=== PATIENT | male | born 1985 | race African-American/Black ===

== ENCOUNTER 2023-04-27 18:45 | Emergency (ER) | payer MEDICAID, SELFPAY ==
--- NOTE | ~2023-04-27 | US_ITS ---
EXAMINATION: US ABDOMEN LIMITED CLINICAL INFORMATION: Right upper quadrant pain COMPARISON: None TECHNIQUE: Ultrasound of the abdomen was performed. Color Doppler was employed. FINDINGS: The liver is normal in size and homogeneous in echotexture. No focal parenchymal lesion is identified. No intrahepatic biliary ductal dilatation is identified. The gallbladder is normal in appearance without gallstones, mural thickening, pericholecystic fluid or sonographic Li's sign. The CBD measures 0.3 cm. The pancreatic head and body are normal in echotexture. The pancreatic tail is obscured by overlying bowel gas. Right kidney within normal limits measuring 11.7 cm. Small well-circumscribed anechoic cyst measures 1.5 cm in the upper pole. There is no hydronephrosis, contour deforming solid mass or shadowing calculus. There is no ascites. US/US abdomen limited IMPRESSION: Normal right upper quadrant ultrasound.
[2023-04-27 19:49] VITALS: BP 141/100; PULSE 85; RESP 18; TEMP 37.2; O2SAT 99; BMI 31.7
--- NOTE | 2023-04-27 20:20 | MHC.EDTECH ---
PATIENT BLOOD DRAWN AND URINE SAMPLE COLLECTED AND SENT TO LAB.
[2023-04-27 20:22] LABS: MANUAL DIFF FLAG NO
[2023-04-27 20:24] LABS: Appearance Urine Clear; Color Urine Yellow; Glucose Urine UA Negative (Negative); Leukocyte Esterase Urine Negative (Negative); Nitrite Urine Negative (Negative); PH 5.5 (5.0-9.0); Specific Gravity - Urine 1.025 (1.005-1.025); Urine Blood Negative (Negative); Urine Ketones Trace mg/dL (Negative); Urine Protein Negative (Neg-Trace)
[2023-04-27 20:25] LABS: Basophils Absolute Auto 0.1 X10*3/uL (0.0-0.2); Eosinophils Absolute Auto 0.1 X10*3/uL (0.0-0.4); Eosinophils Percent Auto 1.7 % (0-4); Hematocrit 45.2 % (42.0-52.0); Hemoglobin 16.6 g/dl (14.0-18.0); Imm Gran Abs Auto 0.02 X10*3/uL (0.00-0.03); Imm Gran Pct Auto 0.4 % (0.0-0.4); Lymphocytes Absolute Auto 2.1 X10*3/uL (1.2-4.9); Lymphocytes Percent Auto 39.7 % (20-40); Mean Corpuscular HGB Conc 36.7 g/dl (31.0-36.0); Mean Corpuscular Hemoglobin 30.5 pg (27.0-33.0); Mean Corpuscular Volume 83.1 fL (80.0-98.0); Monocytes Absolute Auto 0.4 X10*3/uL (0.1-1.2); Monocytes Percent Auto 7.2 % (2-11); Neutrophils Absolute Auto 2.6 x10*3/uL (2.0-8.3); Platelet Count 318 X10*3/uL (160-400); Red Blood Count 5.44 X10*6/uL (4.60-5.80); Red Cell Distribution Width 12.2 % (11.0-16.0); White Blood Count 5.3 X10*3/uL (4.8-10.8)
--- NOTE | 2023-04-27 20:35 | ED.ABDPAIN ---
HPI - Abdominal Pain General Chief Complaint: Abdominal Pain Stated Complaint: bump on R side of chest, pain? Time Seen by Provider: 04/27/23 22:29 Source: patient Mode of arrival: ambulatory Limitations: no limitations History of Present Illness HPI narrative: Patient is a 37-year-old male who presents emergency department for evaluation of pain to the right upper abdomen with a palpable lump. Onset was 3 days ago, states he awoke and after stretching he noticed this pain. Pain is described as sharp and made worse with particular movements such as overhead stretching. Reports tenderness upon palpation. Denies fevers, chills, poor p.o. intake, nausea, vomiting, lower abdominal pain, back pain, genitourinary symptoms, constipation, diarrhea. Denies any history of similar pain in the past. Related Data Allergies Allergy/AdvReac Type Severity Reaction Status Date / Time No Known Allergies Allergy Verified 04/27/23 19:53 Review of Systems Review of Systems Constitutional : No Weight loss, No Fever, No Chills ENT/Mouth :? No sore throat, No Rhinorrhea Eyes: No Swelling, No Redness Cardiovascular : No Chest Pain, No SOB, No Edema Respiratory : No Cough, No Sputum, No Wheezing Gastrointestinal : No Nausea, no Vomiting, no Diarrhea, positive abdominal pain, No Hematochezia, No Melena Genitourinary : No Dysuria, No Urinary Frequency, No Hematuria, No Urgency? Musculoskeletal : No joint pain, No Myalgias, No Joint Swelling Skin : No Skin Lesions, No rash Neuro : No Weakness, No Numbness, No Dizziness, No Headache Psych : No Anxiety/Panic, No Depression Heme/Lymph: No Bruising, No Lymphadenopathy Endocrine : No Polyuria, No Polydipsia Yes all other systems are reviewed and are negative COUNTS INCLUDE 234 BEDS AT THE [facility] Past Medical History Attestation statement: The following information was validated with the patient. Source: old records reviewed Social History Social History Alcohol intake: never Smoked in Last 30 Days: No Use of substances other than those prescribed or required for medical reasons: No Advance Directives: No Advance Directives Information Provided: Yes Physical Exam ED Vital Signs: Vital Signs - 24 hr 04/27/23 19:49 Temperature 98.9 F Pulse Rate 85 Respiratory Rate 18 Blood Pressure 141/100 H Pulse Oximetry 99 Oxygen Delivery Method Room Air BMI result Body Mass Index 31.7 Appearance: Alert.?Oriented to person, place and time. No acute distress.?Normal affect. Eyes: Pupils equal, round and reactive to light.? ENT: Pharynx normal.?? Neck: Normal inspection.? Neck supple.?? CVS: Heart sounds normal. Normal heart rate and rhythm.? Pulses normal.?? Respiratory: No respiratory distress.? Lung sounds clear to auscultation bilaterally?? Abdomen: Soft without rigidity or guarding. No rebound tenderness. Negative Li sign. Right upper quadrant with localized area of palpable tenderness upon palpation, Normoactive bowel sounds. Skin: Skin warm and dry.? Normal skin color.? ?? Extremities: No lower extremity edema.? Neuro: Moves all extremities spontaneously. Sensation intact bilaterally. Ambulates with normal steady gait. Course Course Course Narrative: This is an RME: Additional HPI, ROS, PE not included below will be deferred to primary provider. This is a 37-year-old male presenting to the emergency department with complaints of right upper quadrant pain times 2-3 days. No nausea vomiting or diarrhea. Patient reports pain worsens with movement. On examination, abdomen is soft, with tenderness palpation the right upper quadrant. No history of abdominal surgeries in the past. Patient mildly hypertensive at 141/100, all other vital signs within normal limits. Plan: Labs, abdominal ultrasound Medical Decision Making Medical Decision Making [facility] Narrative: Patient is a 37-year-old male presents emergency department for evaluation of right upper quadrant abdominal pain/tenderness upon palpation. He is overall well-appearing, nontoxic, afebrile. Abdominal examination notable for tenderness, not however consistent with acute abdomen. Low suspicion for cholecystitis, acute cholangitis, pyelonephritis, obstructive calculi, hydronephrosis. CBC is without leukocytosis or anemia. CMP is overall unremarkable, lipase is within normal limits. Urinalysis without evidence of infection. I reviewed ultrasound as obtained by RME provider, which reveals no acute abnormal findings, no evidence of cholecystitis, cholelithiasis, renal calculi. Given exacerbation with movement, likely consistent with a muscular strain. Advised rest, ice/heat, acetaminophen/ibuprofen for pain, outpatient follow-up primary care provider as needed for persistent symptoms. Discussed worrisome signs and symptoms that would warrant re-evaluation in the emergency department. All questions answered. Stable for discharge. Differential Diagnosis Differential Diagnoses: The differential diagnosis associated with the presentation includes (As noted above) Lab Data [facility] Lab Attestation statement: I reviewed the patient's lab results. (As noted above) 04/27/23 20:14 04/27/23 20:15 Labs: Lab Results 04/27/23 04/27/23 04/27/23 Range/Units 20:14 20:15 20:15 WBC 5.3 (4.8-10.8) X10*3/uL RBC 5.44 (4.60-5.80) X10*6/uL Hgb 16.6 (14.0-18.0) g/dl Hct 45.2 (42.0-52.0) % MCV 83.1 (80.0-98.0) fL MCH 30.5 (27.0-33.0) pg MCHC 36.7 H (31.0-36.0) g/dl RDW 12.2 (11.0-16.0) % Plt Count 318 (160-400) X10*3/uL MPV 10.0 (9.4-12.4) fL Immature Gran % (Auto) 0.4 (0.0-0.4) % Neut % (Auto) 50.0 (45-73) % Lymph % (Auto) 39.7 (20-40) % [place] % (Auto) 7.2 (2-11) % Eos % (Auto) 1.7 (0-4) % Baso % (Auto) 1.0 (0-2) % Lymph # (Auto) 2.1 (1.2-4.9) X10*3/uL [place] # (Auto) 0.4 (0.1-1.2) X10*3/uL Eos # (Auto) 0.1 (0.0-0.4) X10*3/uL Baso # (Auto) 0.1 (0.0-0.2) X10*3/uL Abs Immat Gran (auto) 0.02 (0.00-0.03) X10*3/uL Absolute Neuts (auto) 2.6 (2.0-8.3) x10*3/uL Absolute Nucleated RBC 0.000 (0.0-0.012) X10*3/uL Nucleated RBC % (auto) 0.0 (0.0-0.2) /100WBC Sodium 140 (135-145) mmol/L Potassium 3.9 (3.3-5.1) mmol/L Chloride 106 (96-108) mmol/L Carbon Dioxide 26 (22-29) mmol/L Anion Gap 12 (12-20) BUN 14 (9-16) mg/dL Creatinine 1.25 (0.5-1.4) mg/dL Estim Creat Clear Calc 96.9 Estimated GFR > 60 Random Glucose 93 (60-115) mg/dL Calcium 9.7 (8.4-10.2) mg/dL Magnesium 1.9 (1.6-2.6) mg/dL Total Bilirubin 1.2 H (0.0-1.0) mg/dL Direct Bilirubin 0.3 (0.0-0.5) mg/dL AST 32 (5-37) U/L ALT 38 (0-40) U/L Alkaline Phosphatase 50 (39-117) U/L Total Protein 7.6 (6.5-8.0) g/dL Albumin 4.3 (3.5-5.0) g/dL Lipase 26 (8-78) U/L Urine Color Yellow Urine Appearance Clear Urine pH 5.5 (5.0-9.0) Ur Specific [place] 1.025 (1.005-1.025) Urine Protein Negative (Neg-Trace) mg/dL Urine Glucose (UA) Negative (Negative) mg/dL Urine Ketones Trace (Negative) mg/dL Urine Blood Negative (Negative) Urine Nitrite Negative (Negative) Ur Leukocyte Esterase Negative (Negative) Independent Interpretation I performed an independent interpretation of an: Ultrasound (Agree with radiologist impression, no evidence of cholecystitis or cholelithiasis) Radiology Impression Discussion of test interpretation with radiology: I have reviewed the radiologist's reading. Radiologist Impression: US/US abdomen limited IMPRESSION: Normal right upper quadrant ultrasound. Prescription Management I considered prescription management with: Pain Medication (Acetaminophen/ibuprofen) Discharge Plan Discharge Clinical Impression: Abdominal muscle strain Patient Disposition: Home, Self-Care Instructions: Muscle Strain (ED), Abdominal Pain (ED) Additional Instructions: You can take ibuprofen 200 mg, 3 tablets (600mg) every 6-8 hours as needed for pain, in addition to Tylenol 500 mg, 2 tablets (1,000mg) every 4-6 hours as needed for pain, but not to exceed 3 doses daily (3,000mg).? Please contact your primary care provider and arrange for a follow-up visit within 3 days. You may return back to emergency department wth any new or worsening symptoms or concerns. Referrals: Gregor Quiñonez MD [Primary Care Provider] -
[2023-04-27 20:54] LABS: Alanine Aminotransferase 38 U/L (0-40); Albumin Level 4.3 g/dL (3.5-5.0); Alkaline Phosphatase 50 U/L (39-117); Anion Gap 12 (12-20); Aspartate Amino Transferase 32 U/L (5-37); Bilirubin Direct 0.3 mg/dL (0.0-0.5); Bilirubin Total 1.2 mg/dL (0.0-1.0); Blood Urea Nitrogen 14 mg/dL (9-16); Calcium 9.7 mg/dL (8.4-10.2); Carbon Dioxide 26 mmol/L (22-29); Chloride 106 mmol/L (96-108); Creatinine Clr Calc Pharmacy 96.9; Estimated Glomerular Filt Rate > 60; Glucose Random 93 mg/dL (60-115); Lipase 26 U/L (8-78); Magnesium 1.9 mg/dL (1.6-2.6); Potassium 3.9 mmol/L (3.3-5.1); Sodium 140 mmol/L (135-145); Total Protein 7.6 g/dL (6.5-8.0)
[2023-04-27 23:57] VITALS: BP 130/70; PULSE 73; RESP 17; TEMP 36.8; O2SAT 99
== END 2023-04-27 23:58 | disposition home or self-care (01) ==
PROVIDERS: Physician Assistant Medical; Emergency Provider Emergency Medicine; PCP Internal Medicine
DX: S39.011A Strain of muscle, fascia and tendon of abdomen, initial encounter (principal); X50.1XXA Overexertion from prolonged static or awkward postures, initial encounter; Y93.89 Activity, other specified; Y92.019 Unspecified place in single-family (private) house as the place of occurrence of the external cause; Y99.9 Unspecified external cause status
CPT/HCPCS: 36415; 76705; 80048; 80076; 81003; 83690; 83735; 85025; 99284